=== PATIENT | male | born 1960 | race Caucasian/White ===

== ENCOUNTER → 2022-03-18 | Outpatient (CLI) | payer OTHER, SELFPAY ==
[2022-03-18 13:13] LABS: Vitamin B12 448 pg/mL (211-911); Vitamin D,25 Hydroxy 41.5 ng/mL
[2022-03-18 13:18] LABS: Thyroid Stim Hormone (TSH) 2.03 uIU/mL (0.358-3.74)
== END | disposition home or self-care (01) ==
PROVIDERS: Visit Provider Nurse Practitioner Family
DX: F32.A Depression, unspecified (principal); F41.9 Anxiety disorder, unspecified; R53.83 Other fatigue
CPT/HCPCS: 82306; 82607; 84439; 84443